=== PATIENT | male | born 1945 | race Caucasian/White ===

== ENCOUNTER 2023-05-10 12:55 | Emergency (ER) | payer MEDICARE ==
[~2023-05-10] VITALS: Ht 180.3 cm; Wt 74.8 kg
[2023-05-10 13:03] VITALS: TEMP 98.2; O2SAT 99
[2023-05-10] MEDS ORDERED: FAMOTIDINE 20MG TABLET PO NR (13:45)
[2023-05-10] MEDS ORDERED: MAGNESIUM/ALUMINUM HYDROXIDE/SIMETHICONE 30ML UDC PO NR (13:45)
[2023-05-10] MEDS ORDERED: ONDANSETRON 4MG ODT PO NR (13:45)
[2023-05-10 15:04] LABS: BASOPHILS % 0.4 % (0.0-2.0); HEMATOCRIT. 46.6 % (42.0-52.0); HEMOGLOBIN. 15.3 g/dL (14.0-18.0); LYMPHOCYTES % 14.4 % (20.0-50.0); MEAN CORPUSCULAR HEMOGLOBIN 32.5 pg (28.0-32.0); MEAN CORPUSCULAR HGB CONC 32.8 g/dL (31.0-37.0); MEAN PLATELET VOLUME 11.1 fl (7.4-10.4); MONOCYTES % 7.6 % (2.0-8.0); NEUTROPHILS % 76.6 % (40.0-76.0); PLATELET 178 x1000/uL (130-400); RED BLOOD CELL COUNT 4.71 mill/uL (4.7-6.1); RED CELL DISTRIBUTION WIDTH 13.8 % (11.6-14.6); WHITE BLOOD COUNT 10.6 x1000/uL (4.5-11.0)
[2023-05-10 15:10] LABS: ALANINE AMINOTRANSFERASE < 7 IU/L (10-49); ALBUMIN 4.5 g/dL (3.2-4.8); ASPARTATE AMINOTRANSFERASE 15 IU/L (<34); BILIRUBIN TOTAL 0.8 mg/dL (0.1-1.0); CALCIUM 9.6 mg/dL (8.7-10.4); CARBON DIOXIDE 30 mEq/L (21-32); CHLORIDE 103 mEq/L (98-107); CREATININE 0.8 mg/dL (0.6-1.3); GLUCOSE 113 mg/dL (70-105); POTASSIUM 3.9 mEq/L (3.5-5.1); PROTEIN TOTAL 8.1 g/dL (6.0-8.3); SODIUM 138 mEq/L (136-145); UREA NITROGEN BLOOD 11 mg/dL (9-23)
[2023-05-10 15:17] LABS: TROPONIN I HIGH SENSITIVITY < 4 ng/L (3.0-53)
[2023-05-10] MEDS ORDERED: MAG-55 MT (16:24)
[2023-05-10] MEDS ORDERED: FAMO-135 MT (16:24)
[2023-05-10 18:51] VITALS: BP 157/83; PULSE 77; RESP 18
== END 2023-05-10 19:02 | disposition home or self-care (01) ==
LOC: ER 12:55
DX: R10.13 Epigastric pain (principal)
CPT/HCPCS: 99285; 74176; 71045; 80053; 83690; 85025; 84484; 36415; 93005; Q0162